=== PATIENT | female | born 1965 | race African-American/Black ===

== ENCOUNTER 2020-09-23 04:26 | Emergency (ER) | payer SELFPAY ==
[~2020-09-23] VITALS: Ht 167.6 cm; Wt 72.3 kg
--- NOTE | 2020-09-23 04:59 | PHYS DOC ---
General Adult EDM: Chief Complaint: UPPER EXTREMITY PAIN HPI: HPI: "... My arm is killing me... ".." The pain woke up up.. it been hurting all this week.. and now more swollen.. I have rheumatoid arthritis.. but the celebrex is not helping.. Patient is a 55 year old female who presents with above hx and complaints right forearm and wrist pain. Patient has a longstanding history of rheumatoid arthritis which she takes Celebrex as a maintenance drug. Patient states for the last couple days has had increasing pain in right hand and wrist. Right hand and wrist are her dominant side. Patient has obviously some swelling of hand and wrist. Has marked pain on percussion of median nerve. Distal cap refill and right hand is equal to left hand. Patient normally follows with [facility]. No history of recent trauma. No history of trauma. No history immunosuppression. Patient does smoke. Review of Systems: Review of Systems: Constitutional: Denies fever or chills Eyes: Denies change in visual acuity HENT: Denies nasal congestion or sore throat Respiratory: Denies cough or shortness of breath Cardiovascular: Denies chest pain or edema GI: Denies abdominal pain, nausea, vomiting, bloody stools or diarrhea : Denies dysuria Musculoskeletal: Right hand and wrist pain Integument: Denies rash Neurologic: Denies headache, focal weakness or sensory changes Endocrine: Denies polyuria or polydipsia Lymphatic: Denies swollen glands Psychiatric: Denies depression or anxiety Family History: Family History: Noncontributory to presentation Current Medications: Current Meds: See nursing for home meds Allergies: Allergies: Allergies Coded Allergies Type Severity Reaction Last Updated Verified No Known Drug Allergies 09/23/20 No Physical Exam: PE: Constitutional: in acute distress, non-toxic appearance. [] HENT: Normocephalic, atraumatic, bilateral external ears normal, oropharynx moist, no oral exudates, nose normal. [] Eyes: PERRLA, EOMI, conjunctiva normal, no discharge. [] Neck: Normal range of motion, no tenderness, supple, no stridor. [] Cardiovascular:Heart rate regular rhythm, no murmur [] Lungs & Thorax: Bilateral breath sounds equal apex on auscultation. Bilateral scattered wheezes Abdomen: Bowel sounds normal, soft, no tenderness, no masses, no pulsatile masses. [] Skin: Warm, dry, no erythema, no rash. [] Back: No tenderness, no CVA tenderness. [] Extremities: No tenderness, no cyanosis, no clubbing, ROM intact, no edema. Except findings in right wrist and hand as per HPI Neurologic: Alert and oriented X 3, moves all extremities on request, does have distal sensory, no focal deficits noted. [] Psychologic: Affect very anxious, judgement normal, mood normal. [] Current Patient Data: Vital Signs: Vital Signs Date Time Temp Pulse Resp B/P (MAP) Pulse Ox O2 Delivery O2 Flow Rate FiO2 09/23/20 04:39 98.9 101 22 128/88 (101) 99 Room Air EKG: EKG: [] Radiology/Procedures: Radiology/Procedures: [][place] [id number] IMAGING REPORT Signed PATIENT: HIRAM ADLER ACCOUNT: [id number] : 1965 LOCATION: ER AGE: 55 SEX: F EXAM STATUS: DEP ER ORD. PHYSICIAN: STACIA YU MD REASON: pain, edema PROCEDURE: WRIST 3V RIGHT Study: 1. XR RT WRIST 3VIEWS 2. XR HAND_RIGHT 3 VIEWS Indication: Pain and edema. Comparison: None. Findings: Right hand: No fracture, aggressive erosion or periostitis seen throughout the hand. Maintained joint spaces. No advanced arthrosis. No retained radiopaque foreign body. Right wrist: Alignment is within normal limits. No acute fracture. Maintained joint spaces. No retained radiopaque foreign body. The bones appear somewhat osteopenic. Impression: Right hand and right wrist: 1. No acute fracture or radiographic evidence for an inflammatory arthritis. 2. The bones appear osteopenic. If not previously performed a DEXA scan could be considered to fully quantitate. Electronically signed by: MAEGAN PETERSON MD (09/23/2020 6:22 AM) [facility] DICTATED AND SIGNED BY: MAEGAN PETERSON MD DATE: 09/23/2020 CC: STACIA YU MD; PCP,UNKNOWN ~MTH0 0 Heart Score: C/O Chest Pain: N/A Risk Factors: Risk Factors: DM, Current or recent (<one month) smoker, HTN, HLP, family history of CAD, obesity. Risk Scores: Score 0 - 3: 2.5% MACE over next 6 weeks - Discharge Home Score 4 - 6: 20.3% MACE over next 6 weeks - Admit for Clinical Observation Score 7 - 10: 72.7% MACE over next 6 weeks - Early Invasive Strategies Course & Med Decision Making: Course & Med Decision Making Pertinent Labs and Imaging studies reviewed. (See chart for details) Patient continue current home meds. For her arthritis. Patient to wear splint. May consider use of sling to prevent her from overuse of the right hand. Suspect some carpal tunnel syndrome exacerbated by patient underlying rheumatoid arthritis. Patient take Tylenol with her Celebrex to help with management of her pain. If marked pain may take Percocet up to 4 times a day. Call [facility] for follow-up appointment. Return if any concerns. Keep follow-up with primary care. Patient may be a candidate for methotrexate therapy 1 g a day with multivitamin folate-but this should be discussed for primary care. Impression: 1. History of rheumatoid arthritis- 2. Carpal tunnel syndrome [] Dragon Disclaimer: Dragon Disclaimer: This electronic medical record was generated, in whole or in part, using a voice recognition dictation system. Departure Departure: Referrals: PCP,UNKNOWN (PCP) Scripts Oxycodone Hcl/Acetaminophen (PERCOCET 5-325 MG TABLET ) 1 Each Tablet 1 TAB PO PRN Q6HRS PRN for PAIN, #30 TAB Prov: STACIA YU MD 09/23/20 Michelle Disclaimer This chart was dictated in whole or in part using Voice Recognition software in a busy, high-work load, and often noisy Emergency Department environment. It may contain unintended and wholly unrecognized errors or omissions. STACIA YU MD Sep 23, 2020 04:59
[2020-09-23] MEDS ORDERED: KETOROLAC 60 MG/2 ML VIAL. IM ONE (05:45)
[2020-09-23] MEDS ORDERED: MORPHINE SULFATE 10 MG/ML SYRINGE. SQ ONE (05:45)
[2020-09-23] MEDS ORDERED: methylPREDNISolone ACETATE 40 MG/ML VIAL. IM ONE (05:45)
[2020-09-23] MEDS ORDERED: OXYC1TAB15 PO (05:56)
[2020-09-23 06:10] VITALS: BP 130/82
--- NOTE | 2020-09-23 06:24 | RAD ---
Study: 1. XR RT WRIST 3VIEWS 2. XR HAND_RIGHT 3 VIEWS Indication: Pain and edema. Comparison: None. Findings: Right hand: No fracture, aggressive erosion or periostitis seen throughout the hand. Maintained joint spaces. No advanced arthrosis. No retained radiopaque foreign body. Right wrist: Alignment is within normal limits. No acute fracture. Maintained joint spaces. No retained radiopaque foreign body. The bones appear somewhat osteopenic. Impression: Right hand and right wrist: 1. No acute fracture or radiographic evidence for an inflammatory arthritis. 2. The bones appear osteopenic. If not previously performed a DEXA scan could be considered to fully quantitate. Electronically signed by: MAEGAN PETERSON MD (09/23/2020 6:22 AM) [place]
== END 2020-09-23 06:19 | disposition home or self-care (01) ==
LOC: ER 04:26
DX: G56.01 Carpal tunnel syndrome, right upper limb (principal); M06.9 Rheumatoid arthritis, unspecified
CPT/HCPCS: 73110; 73130; 96372; 99284; J1030; J1885; J2270